=== PATIENT | female | born 1990 | race Two or more races ===

== ENCOUNTER 2017-04-06 19:33 | Inpatient (IN) | payer OTHER ==
[~2017-04-06 19:33] MED LIST: PRENATAL VITAM1 EAC5 PO
[2017-04-07 07:15] LABS: BASO % 0.1 % (0-2); EOS % 0.3 % (0-7); IMMATURE GRANULOCYTES ABSOLUTE 0.02 tho/cmm (0-0.03); IMMATURE GRANULOCYTES PERCENT 0.2 % (0-0.3); LYMPH % 12.5 % (20-45); LYMPH ABSOLUTE COUNT 1.6 tho/cmm (0.8-4.5); MCH (MEAN CORPUSCULAR HGB) 29.6 pg (28.0-32.0); MCHC MEAN CORPUSCULAR HGB CONC 33.3 % (32.0-36.0); MCV (MEAN CELL VOLUME) 88.7 fl (82.0-96.0); MEAN PLATELET VOLUME 12.3 cmc (9.4-12.4); MONOCYTE ABSOLUTE COUNT 1.2 tho/cmm (0.0-1.2); NEUTROPHILS % 77.9 % (40-80); PLATELET COUNT 138 tho/cmm (150-450); RED BLOOD COUNT 3.72 mil/cmm (4.00-5.20); RED CELL DISTRIBUTION WIDTH 13.3 % (12.4-16.4); WHITE BLOOD COUNT 12.8 tho/cmm (4.0-10.0)
[2017-04-08] MEDS ORDERED: NORCO 5-325 TA1 EACH PO (10:59)
[2017-04-08] MEDS ORDERED: IBUPROFEN800 M1 PO (10:59)
[2017-04-08] MEDS ORDERED: TRIPNIP TOP (11:05)
== END 2017-04-08 12:55 | DRG 775 ==
LOC: LDR 19:33 → OBGF 04-07 02:02
PROVIDERS: ADMIT Advanced Practice Midwife
PROC: 10E0XZZ Delivery of Products of Conception, External Approach (ICD-10-PCS; principal; 2017-04-06)
DX: O36.63X0 Maternal care for excessive fetal growth, third trimester, not applicable or unspecified (principal); Z37.0 Single live birth; Z3A.39 39 weeks gestation of pregnancy
CPT/HCPCS: J2210; J2370; J2405; J2590